=== PATIENT | female | born 1980 | race Two or more races ===

== ENCOUNTER 2024-11-26 09:58 | Outpatient (CLI) | payer OTHER | END 2024-11-26 10:11 | disposition home or self-care (01) | LOC: MAMO-SONO 09:58 | PROVIDERS: ATTEND Obstetrics & Gynecology Obstetrics | DX: N60.11 Diffuse cystic mastopathy of right breast (principal); N60.12 Diffuse cystic mastopathy of left breast; Z12.31 Encounter for screening mammogram for malignant neoplasm of breast; E04.9 Nontoxic goiter, unspecified; N92.0 Excessive and frequent menstruation with regular cycle; E66.01 Morbid (severe) obesity due to excess calories; R10.13 Epigastric pain ==